=== PATIENT | female | born 1990 | race African-American/Black ===

== ENCOUNTER 2017-09-05 21:20 | Emergency (ER) | payer SELFPAY ==
[2017-09-06 00:43] VITALS: BP 0/0
--- NOTE | 2017-09-07 22:45 | ED ---
Michael Robison Jennifer, scribed for Aamir Rivera MD on 09/05/17 at 2143 . Substance Abuse/Use - HPI Summary HPI Summary: The patient is a 27 year old female who was brought to the ED by [facility] today. The patient had been drinking and reports that she doesnt know why she is in the ED. She describes herself as competitive and said she was being aggressive at the [facility] hockey game. [place] police said she was only able to stand, had a high alcohol level, and almost fell downstairs at the hockey rink. The patient denies any injuries, drug use, and health problems. - History Of Current Complaint Stated Complaint: 2208 Time Seen by Provider: 09/05/17 21:34 Hx Obtained From: Patient Ingestion History: Type/Name Of Drug - EtOH, Amount Ingested - 2 beers and 1 shot Overdose Characteristics: Oral Timing Of Abuse: Binge Use Severity Initially: Mild Severity Currently: Mild Character: Lethargic Aggravating Factor(s): Nothing Alleviating Factor(s): Nothing Associated Signs And Symptoms: Other: - Confused, drowsy PMH/Surg Hx/FS Hx/Imm Hx Cardiovascular History: Reports: Hx Hypercholesterolemia Sensory History: Denies: Hx Legally Blind EENT History: Denies: Hx Deafness - Family History Known Family History: Negative: Renal Disease - Social History Alcohol Use: Occasionally Review of Systems Constitutional: Other - Intoxicated, drowsy Negative: Fever, Chills, Skin Diaphoresis Negative: Erythema Negative: Sore Throat Negative: Chest Pain Negative: Shortness Of Breath, Cough Negative: Abdominal Pain, Vomiting, Nausea Negative: dysuria, hematuria Negative: Myalgia, Edema Negative: Rash Neurological: Negative - Dizziness Positive: Other - Confused All Other Systems Reviewed And Are Negative: Yes Physical Exam - Summary Physical Exam Summary: Constitutional: Well-developed, Well nourished, (-) Distressed. Appears somewhat drowsy. Skin: Warm, Dry HENT: Normocephalic; Atraumatic Eyes: Bilateral conjunctiva injection. Neck: Musculoskeletal ROM normal neck. (-) JVD, (-) Stridor, (-) Tracheal deviation Cardio: Rhythm regular, rate normal, Heart sounds normal; Intact distal pulses; The pedal pulses are 2+ and symmetric. Radial pulses are 2+ and symmetric. (-) Murmur Pulmonary/Chest wall: Effort normal. (-) Respiratory distress, (-) Wheezes, (-) Rales Abd: Soft, (-) Tenderness, (-) Distension, (-) Guarding, (-) Rebound Musculoskeletal: (-) Edema Lymph: (-) Cervical adenopathy Neuro: Alert, Oriented x3 Psych: Mood and affect Normal Triage Information Reviewed: Yes Vital Signs Reviewed: Yes Course/Dx - Course Assessment/Plan: The patient is a 27 year old female who was brought to the ED by [facility] today. The patient had been drinking and almost fell down the stairs at the [facility] hockey game. Her STEFANO was measured in the ED. The patient is diagnosed with alcohol intoxication. Sign out to Dr. Russell pending sobriety. - Diagnoses Provider Diagnoses: Alcohol intoxication Discharge - Discharge Plan Condition: Stable Disposition: OTHER Discharge Disposition Comment: Sign out to Dr. Russell pending sobriety. The documentation as recorded by the Michael richey Jennifer accurately reflects the service I personally performed and the decisions made by me, Aamir Rivera MD.
== END 2017-09-06 00:47 | disposition home or self-care (01) ==
LOC: ED 21:20
DX: F10.129 Alcohol abuse with intoxication, unspecified (principal)
CPT/HCPCS: 36415; 80307; 99283

== ENCOUNTER 2021-04-09 03:22 | Inpatient (IN) ==
[2021-04-09] MEDS ORDERED: NS 0.9% 1000 ml BAG 1,000 ML IV ONE ×2 (03:25)
[2021-04-09] MEDS ORDERED: ceFAZolin 2 GM in NS PREMIX 2 GM/100 ML BAG IVPB ONE (03:25)
[2021-04-09] MEDS ORDERED: Tetan/Diph/Pertus SYR(Tdap) 0.5 ML SYR(BOOSTRIX) use SYR contains LATEX IM ONE (03:25)
[2021-04-09] MEDS ORDERED: fentaNYL 100 mcg/2 ml 50 MCG/ML VIAL IV SLOW PU ONE ×2 (03:36)
[2021-04-09 03:40] LABS: Hematocrit 39 % (35-47); Hemoglobin 12.4 g/dL (12.0-16.0); Mean Corpuscular HGB Conc 32 g/dL (31-36); Mean Corpuscular Hemoglobin 29 pg (27-31); Mean Corpuscular Volume 90 fL (80-97); Mean Platelet Volume 7.1 fL (7.4-10.4); Platelet Count 389 10^3/uL (150-450); Red Blood Count 4.35 10^6 /uL (3.70-4.87); Red Cell Distribution Width 14 % (10-15); White Blood Count 12.1 10^3/uL (3.5-10.8)
[2021-04-09 03:44] LABS: INR 0.96 (0.86-1.15)
[2021-04-09] MEDS ORDERED: Piperacillin/Tazobac ADVAN 3.375 GM in NS 0.9% 100 ml BAG 100 ML IV ONE ×2 (03:48→11:00)
[2021-04-09 04:02] LABS: Alcohol, S 265 mg/dL (<13)
[2021-04-09] MEDS ORDERED: Morphine 4 MG/ML VIAL (1 ml) IV ONE ×2 (04:02)
[2021-04-09 04:03] LABS: ALT 31 U/L (7-52); AST 21 U/L (13-39); Albumin 4.8 g/dL (3.2-5.2); Albumin/Globulin Ratio 1.3 (1-3); Alkaline Phosphatase 76 U/L (35-149); Anion Gap 13 mmol/L (2-11); Blood Urea Nitrogen 15 mg/dL (6-24); CO2 Carbon Dioxide 22 mmol/L (22-32); Calcium 9.1 mg/dL (8.6-10.3); Chloride 102 mmol/L (101-111); EGFR African American 90.1 (>60); EGFR Non-African American 74.5 (>60); Globulin 3.6 g/dL (2-4); Glucose 108 mg/dL (70-100); Potassium 3.7 mmol/L (3.5-5.0); Sodium 137 mmol/L (135-145); Total Protein 8.4 g/dL (6.4-8.9)
[2021-04-09 04:08] LABS: HCG Pregnancy < 0.60 mIU/mL
[2021-04-09 04:10] LABS: ABS Eosinophils 0.2 10^3/ul (0-0.6); ABS Lymphocytes 5.8 10^3/ul (1.0-4.8); ABS Monocytes 0.8 10^3/ul (0-0.8); ABS Neutrophils 5.2 10^3/ul (1.5-7.7); Eosinophil % 1.9 %
[2021-04-09] MEDS ORDERED: Bupivacaine 0.5% SDV PF 30ML VIAL ONE (05:01)
[2021-04-09] MEDS ORDERED: Bupivacaine 0.5% SDV PF 30ML VIAL INJ ONE ×2 (05:01)
[2021-04-09] MEDS ORDERED: Midazolam 2 mg/2 ml VIAL 1 mg/ml 2 ml VIAL (2 mg) ONE (05:07)
[2021-04-09] MEDS ORDERED: Propofol 10 MG/ML 20 ML BTL IV ONE (05:07)
[2021-04-09] MEDS ORDERED: Propofol 10 MG/ML 20 ML BTL ONE (05:07)
[2021-04-09] MEDS ORDERED: Lidocaine 2% PF 5 ML VIAL ONE (05:07)
[2021-04-09] MEDS ORDERED: fentaNYL 100 mcg/2 ml 50 MCG/ML VIAL IV ONE ×2 (05:07→06:18)
[2021-04-09] MEDS ORDERED: Midazolam 2 mg/2 ml VIAL 1 mg/ml 2 ml VIAL (2 mg) IV SLOW PU ONE (05:07)
[2021-04-09] MEDS ORDERED: fentaNYL 100 mcg/2 ml 50 MCG/ML VIAL ONE ×2 (05:07→06:18)
[2021-04-09] MEDS ORDERED: Lidocaine 2% PF 5 ML VIAL IV ONE (05:07)
[2021-04-09] MEDS ORDERED: Rocuronium 50 mg VIAL 10 mg/ml 5 ml VIAL (50 mg) ONE (05:12)
[2021-04-09] MEDS ORDERED: Succinylcholine 200 mg VIAL 20 mg/ml 10 ml VIAL (200 mg) IV ONE (05:12)
[2021-04-09] MEDS ORDERED: Rocuronium 50 mg VIAL 10 mg/ml 5 ml VIAL (50 mg) IV ONE (05:12)
[2021-04-09] MEDS ORDERED: Succinylcholine 200 mg VIAL 20 mg/ml 10 ml VIAL (200 mg) ONE (05:12)
[2021-04-09] MEDS ORDERED: Ondansetron 4 mg VIAL 2 MG/ML 2 ml VIAL ONE ×2 (06:04→06:39)
[2021-04-09] MEDS ORDERED: Ondansetron 4 mg VIAL 2 MG/ML 2 ml VIAL IV ONE ×2 (06:04→06:39)
[2021-04-09] MEDS ORDERED: Dexamethasone IV 4 MG/ML VIAL 1 ml VIAL ONE (06:04)
[2021-04-09] MEDS ORDERED: Dexamethasone IV 4 MG/ML VIAL 1 ml VIAL IV SLOW PU ONE (06:04)
[2021-04-09] MEDS ORDERED: Acetaminophen IV 1 GM/100ML 100 ML IV ONE ×2 (06:08)
[2021-04-09] MEDS ORDERED: Naloxone 0.4 mg VIAL 0.4 mg/ml 1 ml VIAL IV PRN (07:00)
[2021-04-09] MEDS ORDERED: DiMENhydriNATE IV 50 mg/ml 1 ml VIAL IV PUSH PRN (07:00)
[2021-04-09] MEDS ORDERED: diPHENhydraMINE IV 50 MG/ML 1 ml VIAL (BENADRYL) IV PRN (07:00)
[2021-04-09] MEDS ORDERED: fentaNYL 100 mcg/2 ml 50 MCG/ML VIAL IV PRN (07:00)
[2021-04-09] MEDS ORDERED: oxyCODONE/Acetamin 5/325 mg TAB PO PRN ×4 (07:29)
[2021-04-09] MEDS ORDERED: Ondansetron 4 mg VIAL 2 MG/ML 2 ml VIAL IV PRN (07:29)
[2021-04-09] MEDS ORDERED: Morphine 10 MG/ML VIAL (1 ml) IV PRN (07:29)
[2021-04-09] MEDS ORDERED: Senna TAB 8.6 mg TAB PO PRN (07:43)
[2021-04-09] MEDS ORDERED: Magnesium Hydroxide LIQ 30 ML UDC PO PRN (07:43)
[2021-04-09] MEDS ORDERED: Polyethylene Glycol 3350 17 GM PACKET PO PRN (07:43)
[2021-04-09] MEDS ORDERED: Lactated Ringers 1000 ml BAG 1,000 ML IV SCH (08:00)
[2021-04-09 08:18] LABS: Rapid COVID-19 Molecular Undetected (Undetected)
[2021-04-09] MEDS ORDERED: Magnesium Hydroxide LIQ 30 ML UDC PO SCH (09:00)
[2021-04-09] MEDS ORDERED: Zosyn per Pharmacy NOTE FOLLOW UP SCH (09:00)
[2021-04-09] MEDS: Magnesium Hydroxide LIQ 30 ML UDC PO SCH ×2 (11:12→20:23)
[2021-04-09] MEDS ORDERED: ceFAZolin 1 GM ADVAN 1 GM in NS 0.9% 50 ML 50 ML IVPB SCH (12:00)
[2021-04-09 12:02] LABS: ABS Lymphocytes 0.9 10^3/ul (1.0-4.8); ABS Monocytes 0.2 10^3/ul (0-0.8); ABS Neutrophils 10.6 10^3/ul (1.5-7.7); Hematocrit 34 % (35-47); Hemoglobin 11.6 g/dL (12.0-16.0); Lymphocyte % 7.8 %; Mean Corpuscular HGB Conc 34 g/dL (31-36); Mean Corpuscular Hemoglobin 30 pg (27-31); Mean Corpuscular Volume 88 fL (80-97); Mean Platelet Volume 7.1 fL (7.4-10.4); Platelet Count 296 10^3/uL (150-450); Red Cell Distribution Width 14 % (10-15); White Blood Count 11.7 10^3/uL (3.5-10.8)
[2021-04-09] MEDS ORDERED: ZOSYN 3.375 GM Q8H per EXTENDED INFUSION IV SCH (20:00)
[2021-04-09] MEDS: Morphine 10 MG/ML VIAL (1 ml) IV PRN (21:05)
[2021-04-09] MEDS: ZOSYN 3.375 GM Q8H per EXTENDED INFUSION IV SCH (21:07)
[2021-04-10] MEDS: oxyCODONE/Acetamin 5/325 mg TAB PO PRN ×5 (02:10→23:44)
[2021-04-10] MEDS: Morphine 10 MG/ML VIAL (1 ml) IV PRN ×3 (02:19→20:27)
[2021-04-10] MEDS: ZOSYN 3.375 GM Q8H per EXTENDED INFUSION IV SCH ×3 (04:27→20:48)
[2021-04-10] MEDS: Enoxaparin 40 MG/0.4 ML SYR SUBCUT SCH (07:39)
[2021-04-10] MEDS ORDERED: Enoxaparin 40 MG/0.4 ML SYR SUBCUT SCH (08:00)
[2021-04-10] MEDS: Magnesium Hydroxide LIQ 30 ML UDC PO SCH ×2 (08:56→20:37)
[2021-04-10] MEDS: Ondansetron 4 mg VIAL 2 MG/ML 2 ml VIAL IV PRN (20:28)
[2021-04-11] MEDS: Morphine 10 MG/ML VIAL (1 ml) IV PRN (02:57)
[2021-04-11] MEDS: Ondansetron 4 mg VIAL 2 MG/ML 2 ml VIAL IV PRN (02:59)
[2021-04-11] MEDS: ZOSYN 3.375 GM Q8H per EXTENDED INFUSION IV SCH ×3 (04:21→22:15)
[2021-04-11] MEDS: Magnesium Hydroxide LIQ 30 ML UDC PO SCH ×2 (07:02→22:23)
[2021-04-11] MEDS: oxyCODONE/Acetamin 5/325 mg TAB PO PRN ×4 (07:05→22:21)
[2021-04-11] MEDS: Enoxaparin 40 MG/0.4 ML SYR SUBCUT SCH (07:05)
[2021-04-12] MEDS: ZOSYN 3.375 GM Q8H per EXTENDED INFUSION IV SCH ×2 (05:34→14:08)
[2021-04-12] MEDS ORDERED: ZOSYN 3.375 GM Q8H per EXTENDED INFUSION IV SCH (06:00)
[2021-04-12] MEDS: oxyCODONE/Acetamin 5/325 mg TAB PO PRN ×2 (06:36→11:50)
[2021-04-12] MEDS: Magnesium Hydroxide LIQ 30 ML UDC PO SCH (08:21)
[2021-04-12] MEDS: Enoxaparin 40 MG/0.4 ML SYR SUBCUT SCH (08:21)
[2021-04-12 09:14] LABS: ABS Eosinophils 0.1 10^3/ul (0-0.6); ABS Lymphocytes 1.7 10^3/ul (1.0-4.8); ABS Monocytes 0.6 10^3/ul (0-0.8); ABS Neutrophils 6.5 10^3/ul (1.5-7.7); Eosinophil % 0.6 %; Hematocrit 33 % (35-47); Hemoglobin 10.9 g/dL (12.0-16.0); Lymphocyte % 19.2 %; Mean Corpuscular HGB Conc 33 g/dL (31-36); Mean Corpuscular Hemoglobin 29 pg (27-31); Mean Corpuscular Volume 89 fL (80-97); Mean Platelet Volume 7.1 fL (7.4-10.4); Platelet Count 276 10^3/uL (150-450); Red Blood Count 3.75 10^6 /uL (3.70-4.87); Red Cell Distribution Width 14 % (10-15); White Blood Count 8.9 10^3/uL (3.5-10.8)
[2021-04-12 09:35] LABS: Calcium 8.7 mg/dL (8.6-10.3); EGFR African American 103.4 (>60); EGFR Non-African American 85.5 (>60)
[2021-04-12] MEDS: Morphine 10 MG/ML VIAL (1 ml) IV PRN (10:04)
[2021-04-12 11:53] VITALS: BP 126/74
== END 2021-04-12 15:30 | disposition home or self-care (01) | DRG 314 ==
LOC: ED 03:22 → SSU 05:32 → OR 05:32
PROVIDERS: ADMIT Orthopaedic Surgery Hand Surgery; ATTEND Orthopaedic Surgery Hand Surgery